=== PATIENT | male | born 1935 | race Caucasian/White ===

== ENCOUNTER 2017-10-09 03:40 | Emergency (ER) | payer OTHER ==
[2017-10-09 08:35] VITALS: BP 140/90
== END 2017-10-09 08:35 | disposition home or self-care (01) ==
LOC: ED 03:40
DX: K59.00 Constipation, unspecified (principal); I10 Essential (primary) hypertension; E11.9 Type 2 diabetes mellitus without complications; N40.0 Benign prostatic hyperplasia without lower urinary tract symptoms; I25.2 Old myocardial infarction; Z95.1 Presence of aortocoronary bypass graft; Z98.890 Other specified postprocedural states; Z86.73 Personal history of transient ischemic attack (TIA), and cerebral infarction without residual deficits

== ENCOUNTER 2017-10-20 08:36 | Emergency (ER) | payer OTHER ==
[~2017-10-20] VITALS: Ht 170.2 cm; Wt 65.8 kg
[2017-10-20 09:21] VITALS: Ht 170.2 cm; Wt 65.8 kg
[2017-10-20 10:24] VITALS: BP 126/77
== END 2017-10-20 10:24 | disposition home or self-care (01) ==
LOC: ED 08:36
DX: K59.00 Constipation, unspecified (principal)

== ENCOUNTER 2018-11-16 00:51 | Emergency (ER) | payer OTHER ==
[~2018-11-16] VITALS: Ht 180.3 cm; Wt 81.6 kg
[2018-11-16 01:08] VITALS: Ht 180.3 cm; Wt 81.6 kg
[2018-11-16 01:57] LABS: PLATELET COUNT 248 x10^3mcL (130-400)
[2018-11-16 01:58] LABS: BASOPHIL % 0 % (0-2); RED CELL DISTRIBUTION WIDTH 15.3 % (11.5-14.5)
[2018-11-16 02:10] LABS: CALCIUM 9.6 mg/dL (8.5-10.1); CARBON DIOXIDE 29.8 mmol/L (21-32); CHLORIDE SERUM 98 mmol/L (98-107); GLUCOSE SERUM 149 mg/dL (74-106); POTASSIUM SERUM 3.3 mmol/L (3.5-5.1); SODIUM SERUM 136 mmol/L (136-145)
[2018-11-16 02:14] LABS: ALBUMIN 3.4 g/dL (3.4-5.0); ALKALINE PHOSPHATASE 56 U/L (46-116); ALT/SGPT 18 U/L (16-63); AST/SGOT 14 U/L (15-37); BILIRUBIN TOTAL 0.53 mg/dL (0.20-1.00); TOTAL PROTEIN, SERUM 8.2 g/dL (6.4-8.2)
[2018-11-16 05:03] VITALS: BP 135/93
[2018-11-17] MEDS ORDERED: PROSCAR5 MG PO (13:17)
[2018-11-17] MEDS ORDERED: XARELTO15 M1 PO (13:19)
[2018-11-17] MEDS ORDERED: CELEBREX200 MG PO (13:21)
[2018-11-17] MEDS ORDERED: REMERON30 MG PO (13:21)
[2018-11-17] MEDS ORDERED: GOOD SENSE OMEP20 MG PO (13:22)
[2018-11-17] MEDS ORDERED: XIGDUO IJ (13:22)
[2018-11-17] MEDS ORDERED: FLOMAX0.4 MG PO (13:24)
[2018-11-17] MEDS ORDERED: COREG12.5 MG PO (13:24)
[2018-11-17] MEDS ORDERED: CYMBALTA60 M1 PO (13:25)
[2018-11-17] MEDS ORDERED: TRESIBA FL100 UNIT/1 IJ (13:28)
== END 2018-11-16 05:03 | disposition home or self-care (01) ==
LOC: ED 00:51
PROVIDERS: Emergency Medicine
DX: D72.829 Elevated white blood cell count, unspecified (principal); I10 Essential (primary) hypertension; E11.9 Type 2 diabetes mellitus without complications; L98.9 Disorder of the skin and subcutaneous tissue, unspecified; Z86.73 Personal history of transient ischemic attack (TIA), and cerebral infarction without residual deficits
CPT/HCPCS: 36415; 87804; Q0092

== ENCOUNTER 2018-11-16 23:31 | Inpatient (IN) | payer OTHER ==
[~2018-11-16] VITALS: Ht 167.6 cm; Wt 72.6 kg
[2018-11-16 23:45] VITALS: Ht 167.6 cm; Wt 72.6 kg
[2018-11-17 00:16] LABS: BASOPHIL % 0.1 % (0-2); PLATELET COUNT 247 x10^3mcL (130-400)
[2018-11-17 00:27] LABS: RED CELL DISTRIBUTION WIDTH 15.3 % (11.5-14.5)
[2018-11-17 00:36] LABS: CALCIUM 10.6 mg/dL (8.5-10.1); CHLORIDE SERUM 99 mmol/L (98-107); CREATININE SERUM 1.1 mg/dL (0.7-1.3); GLUCOSE SERUM 162 mg/dL (74-106); POTASSIUM SERUM 3.5 mmol/L (3.5-5.1); SODIUM SERUM 138 mmol/L (136-145)
[2018-11-17 00:43] LABS: ALBUMIN 3.4 g/dL (3.4-5.0); ALKALINE PHOSPHATASE 54 U/L (46-116); ALT/SGPT 20 U/L (16-63); AST/SGOT 18 U/L (15-37); BILIRUBIN TOTAL 0.3 mg/dL (0.20-1.00); TOTAL PROTEIN, SERUM 8.1 g/dL (6.4-8.2)
[2018-11-17 02:27] LABS: microscopic required? NO
[2018-11-17 02:33] LABS: urine erythrocyte NEGATIVE (NEGATIVE)
[2018-11-17 02:42] LABS: AMPHETAMINE QUAL UR NONE DETECTED (See below)
[2018-11-17 03:40] LABS: FREE T4 1.05 ng/dL (0.76-1.46)
[2018-11-17 04:08] LABS: PHOSPHOROUS 3.3 mg/dL (2.5-4.9)
[2018-11-17 04:15] LABS: CHOLESTEROL/HDL RATIO 3.5
[2018-11-17 05:20] VITALS: BP 133/61
[2018-11-17 06:53] LABS: BASOPHIL % 0.2 % (0-2); PLATELET COUNT 225 x10^3mcL (130-400)
[2018-11-17 07:13] LABS: RED CELL DISTRIBUTION WIDTH 15.2 % (11.5-14.5)
[2018-11-17 07:21] LABS: CALCIUM 10.5 mg/dL (8.5-10.1); CARBON DIOXIDE 31.1 mmol/L (21-32); CHLORIDE SERUM 102 mmol/L (98-107); CREATININE SERUM 1.2 mg/dL (0.7-1.3); GLUCOSE SERUM 130 mg/dL (74-106); MAGNESIUM 1.9 mg/dL (1.8-2.4); PHOSPHOROUS 3.9 mg/dL (2.5-4.9); POTASSIUM SERUM 3.2 mmol/L (3.5-5.1); SODIUM SERUM 140 mmol/L (136-145)
[2018-11-17 08:30] VITALS: BP 144/64
[2018-11-17 13:15] VITALS: BP 118/59
[2018-11-17] MEDS ORDERED: PROSCAR5 MG PO (13:17)
[2018-11-17] MEDS ORDERED: XARELTO15 M1 PO (13:19)
[2018-11-17] MEDS ORDERED: REMERON30 MG PO (13:21)
[2018-11-17] MEDS ORDERED: CELEBREX200 MG PO (13:21)
[2018-11-17] MEDS ORDERED: GOOD SENSE OMEP20 MG PO (13:22)
[2018-11-17] MEDS ORDERED: XIGDUO IJ (13:22)
[2018-11-17] MEDS ORDERED: FLOMAX0.4 MG PO (13:24)
[2018-11-17] MEDS ORDERED: COREG12.5 MG PO (13:24)
[2018-11-17] MEDS ORDERED: CYMBALTA60 M1 PO (13:25)
[2018-11-17] MEDS ORDERED: TRESIBA FL100 UNIT/1 IJ (13:28)
[2018-11-17 18:36] VITALS: BP 132/84
[2018-11-17 22:59] VITALS: BP 144/67
[2018-11-18 05:33] VITALS: BP 149/69
[2018-11-18 08:58] VITALS: BP 168/74
[2018-11-18 09:13] LABS: CALCIUM 9.4 mg/dL (8.5-10.1); CARBON DIOXIDE 30.4 mmol/L (21-32); CHLORIDE SERUM 107 mmol/L (98-107); CREATININE SERUM 1.1 mg/dL (0.7-1.3); GLUCOSE SERUM 150 mg/dL (74-106); POTASSIUM SERUM 4.2 mmol/L (3.5-5.1); SODIUM SERUM 144 mmol/L (136-145)
[2018-11-18 09:50] LABS: BASOPHIL % 0.3 % (0-2); PLATELET COUNT 220 x10^3mcL (130-400); RED CELL DISTRIBUTION WIDTH 15.4 % (11.5-14.5)
[2018-11-18 17:47] VITALS: BP 180/87
[2018-11-18 20:55] VITALS: BP 126/81
[2018-11-18 21:01] VITALS: BP 126/81
[2018-11-19 05:10] VITALS: BP 143/68
[2018-11-19 06:29] LABS: BASOPHIL % 0.2 % (0-2); PLATELET COUNT 206 x10^3mcL (130-400)
[2018-11-19 06:34] LABS: RED CELL DISTRIBUTION WIDTH 15.5 % (11.5-14.5)
[2018-11-19 06:35] LABS: CALCIUM 8.7 mg/dL (8.5-10.1); CARBON DIOXIDE 29.6 mmol/L (21-32); CHLORIDE SERUM 106 mmol/L (98-107); GLUCOSE SERUM 138 mg/dL (74-106); POTASSIUM SERUM 3.9 mmol/L (3.5-5.1); SODIUM SERUM 143 mmol/L (136-145)
[2018-11-19 08:04] VITALS: BP 158/63
[2018-11-19 13:38] VITALS: BP 147/83
[2018-11-19 17:18] VITALS: BP 183/84
[2018-11-19 18:04] VITALS: BP 148/62
[2018-11-20 06:00] VITALS: BP 111/57
[2018-11-20 06:26] LABS: BASOPHIL % 0.4 % (0-2); PLATELET COUNT 199 x10^3mcL (130-400)
[2018-11-20 06:27] LABS: RED CELL DISTRIBUTION WIDTH 15.1 % (11.5-14.5)
[2018-11-20 06:37] LABS: CALCIUM 8.4 mg/dL (8.5-10.1); CARBON DIOXIDE 27.6 mmol/L (21-32); CHLORIDE SERUM 106 mmol/L (98-107); GLUCOSE SERUM 128 mg/dL (74-106); POTASSIUM SERUM 3.6 mmol/L (3.5-5.1); SODIUM SERUM 143 mmol/L (136-145)
[2018-11-20 09:23] VITALS: BP 176/85
[2018-11-20 13:55] VITALS: BP 138/69
[2018-11-20 18:38] VITALS: BP 146/67
[2018-11-20 21:53] VITALS: BP 178/80
[2018-11-20 22:41] VITALS: BP 161/76
[2018-11-21 05:42] VITALS: BP 129/61
[2018-11-21 10:06] VITALS: BP 136/72
[2018-11-21 17:18] VITALS: BP 152/74
[2018-11-21 20:01] VITALS: BP 153/69
[2018-11-22 06:49] LABS: BASOPHIL % 0.5 % (0-2); PLATELET COUNT 243 x10^3mcL (130-400)
[2018-11-22 06:57] LABS: RED CELL DISTRIBUTION WIDTH 14.9 % (11.5-14.5)
[2018-11-22 07:13] LABS: CALCIUM 8.9 mg/dL (8.5-10.1); CARBON DIOXIDE 28.1 mmol/L (21-32); CHLORIDE SERUM 109 mmol/L (98-107); GLUCOSE SERUM 110 mg/dL (74-106); POTASSIUM SERUM 4.2 mmol/L (3.5-5.1); SODIUM SERUM 145 mmol/L (136-145)
[2018-11-22 10:01] VITALS: BP 145/66
[2018-11-22 13:16] VITALS: BP 170/83
[2018-11-22 15:30] VITALS: BP 152/70
[2018-11-22 17:41] VITALS: BP 119/71
[2018-11-22 20:10] VITALS: BP 117/71
[2018-11-23 05:53] VITALS: BP 177/83
[2018-11-23 06:59] VITALS: BP 193/92
[2018-11-23 07:25] LABS: BASOPHIL % 0.4 % (0-2); PLATELET COUNT 219 x10^3mcL (130-400)
[2018-11-23 07:33] LABS: CALCIUM 8.7 mg/dL (8.5-10.1); CARBON DIOXIDE 26.9 mmol/L (21-32); CHLORIDE SERUM 107 mmol/L (98-107); GLUCOSE SERUM 140 mg/dL (74-106); POTASSIUM SERUM 3.7 mmol/L (3.5-5.1); SODIUM SERUM 143 mmol/L (136-145)
[2018-11-23 07:37] LABS: RED CELL DISTRIBUTION WIDTH 15.7 % (11.5-14.5)
[2018-11-23] MEDS ORDERED: FLUCONAZOLE100 MG PO (08:47)
[2018-11-23 09:27] VITALS: BP 142/74
[2018-11-23 09:54] VITALS: BP 142/74
== END 2018-11-23 13:10 | DRG 56 ==
LOC: ED 23:31 → DU 11-17 03:43
PROVIDERS: Emergency Medicine; Internal Medicine; ADMIT Family Medicine
DX: G30.9 Alzheimer's disease, unspecified (principal); G92 Toxic encephalopathy; F05 Delirium due to known physiological condition; D68.69 Other thrombophilia; E11.65 Type 2 diabetes mellitus with hyperglycemia; F02.80 Dementia in other diseases classified elsewhere, unspecified severity, without behavioral disturbance, psychotic disturbance, mood disturbance, and anxiety; K59.00 Constipation, unspecified; I10 Essential (primary) hypertension; E83.52 Hypercalcemia; N40.0 Benign prostatic hyperplasia without lower urinary tract symptoms; E78.5 Hyperlipidemia, unspecified; I25.10 Atherosclerotic heart disease of native coronary artery without angina pectoris; I25.2 Old myocardial infarction; Z95.0 Presence of cardiac pacemaker; Z79.4 Long term (current) use of insulin; Z68.21 Body mass index [BMI] 21.0-21.9, adult; Z95.1 Presence of aortocoronary bypass graft; Z86.73 Personal history of transient ischemic attack (TIA), and cerebral infarction without residual deficits
CPT/HCPCS: 36415; 82962; 84439; 87804; 92526-GN; 92610; 97110-GP; 97116-GP; 97530-GP; G0480; J2060; J3480; J7030; Q0092

== ENCOUNTER 2019-03-28 23:01 | Inpatient (IN) | payer OTHER, MEDICAID ==
[~2019-03-28] VITALS: Ht 172.7 cm; Wt 68.0 kg
[~2019-03-28 23:01] MED LIST: CELEBREX200 MG PO; COREG12.5 MG PO; CYMBALTA60 M1 PO; FLOMAX0.4 MG PO; FLUCONAZOLE100 MG PO; GOOD SENSE OMEP20 MG PO; PROSCAR5 MG PO; REMERON30 MG PO; TRESIBA FL100 UNIT/1 IJ; XARELTO15 M1 PO; XIGDUO IJ
[2019-03-28 23:06] VITALS: Ht 172.7 cm; Wt 68.0 kg
--- NOTE | 2019-03-28 23:15 | NUR ---
DR MUÑOZ AT BEDSIDE FOR MSE
--- NOTE | 2019-03-28 23:52 | NUR ---
MEDICAITONS GIVEN PER ORDER. PT GIVEN WARM BLANKET AND LAB AT BEDSIDE
[2019-03-28 23:57] LABS: PLATELET COUNT 219 x10^3mcL (130-400)
[2019-03-29 00:02] LABS: BASOPHIL % 0 % (0-2)
[2019-03-29 00:15] LABS: CALCIUM 9.4 mg/dL (8.5-10.1); CARBON DIOXIDE 25.6 mmol/L (21-32); CHLORIDE SERUM 107 mmol/L (98-107); CREATININE SERUM 1.2 mg/dL (0.7-1.3); GLUCOSE SERUM 112 mg/dL (74-106); POTASSIUM SERUM 5.1 mmol/L (3.5-5.1); SODIUM SERUM 144 mmol/L (136-145)
[2019-03-29 00:20] LABS: ALBUMIN 3.1 g/dL (3.4-5.0); ALKALINE PHOSPHATASE 47 U/L (46-116); ALT/SGPT 15 U/L (16-63); AST/SGOT 29 U/L (15-37); BILIRUBIN TOTAL 0.42 mg/dL (0.20-1.00); TOTAL PROTEIN, SERUM 7.3 g/dL (6.4-8.2)
--- NOTE | 2019-03-29 01:13 | NUR ---
SPOKE WITH DR MUÑOZ ABOUT UNABTAINABLE URINE SAMPLE. NO STRAIGHT CATH NEEDED . SPOKE WITH ABOUT MEDICATION LIST. SHE DID NOT CURRENTLY HAVE ON SELF AND WOULD BRING A COPY IN THE AM. PT IS LYING ON BACK NO S/S OF DISTRESS. PT GIVEN WARM BLANKET FOR COMFORT
--- NOTE | 2019-03-29 02:44 | NUR ---
REPORT GIVEN TO CARLOS TO ASSUME CARE OF PT
--- NOTE | 2019-03-29 03:00 | NUR ---
RECIEVED PT VIA GUERNEY FROM E/D, ACCOMPANIED BY RN AND TRANSPORTER, PT IS ALERT AND ORIENTED X2, CALM AND COOPERATIVE WITH CARE, PT IS CONFUSED AND IS ORIENTED TO PERSON AND ONLY AT THIS TIME. ON TELE #5 AND AFIB. MARIANNA RADIAL PULSES PRESENT AND MARIANNA PEDAL PULSES PRESENT, PEDAL PULSES ARE WEAK, LEFT SIDED WEAKNESS IS NOTED DUE TO HX OF CVA AND STROKE., BREATHING IS EQUAL AND UNLABORED, ON ROOM AIR, PT HAS LEFT HAND CONTRACTURES. SKIN ASSESSMENT: MULTIPLE SCABS NOTED ON BLE AND DISCOLORATION, SCAB NOTED ON THE LEFT HAND, SCOTT, SACCRAL COCCYX INTACT, TURN Q2HR FOR SKIN MANAGEMENT, PT HAS NO C/O PAIN AT THIS TIME. BUT DID COMPLAIN OF BACK PAIN AND WAS GIVEN TORADOL IN THE ED. ORIENTED PT TO ROOM, BED CONTROLS, CALL LIGHT SYSTEM, SIDE RAILS UPX2, BED IN LOWEST POSITION.
--- NOTE | 2019-03-29 03:05 | NUR ---
DR GAINES MADE AWARE OF AFIB, NO FURTHER ORDERS AT THIS TIME.
[2019-03-29 03:39] VITALS: BP 163/78
[2019-03-29 04:07] LABS: CHOLESTEROL/HDL RATIO 3.6; PHOSPHOROUS 3.5 mg/dL (2.5-4.9)
--- NOTE | 2019-03-29 05:03 | NUR ---
PT HAS RESTED IN SHORT INTERVALS THROUGHOUT THE SHIFT. PT HAS BEEN CALM AND COOPERATIVE WITH CARE. NO ACUTE DISTRESS NOTED. NO COMPLAINT OF PAIN AT THIS TIME. SAFETY AND COMFORT MEASURES MAINTAINED, BED IN LOWEST POSITION, CALL LIGHT WITHIN REACH, SITTER AT THE BEDSIDE. PT HAS BEEN ALERT AND ORIENTED X2, CONFUSED AT TIMES. PT IS FALL RISK AND FALL PRECATIONS IN PLACE.
[2019-03-29 06:12] VITALS: BP 122/61
--- NOTE | 2019-03-29 07:28 | NUR ---
RECEVIED HAND OFF REPORT, FOUND PATIENT RESTING WITH EYS CLOSED APARENTLY ASLEEP ON ROOM AIR, TELE #5 AND SITTING PRESENT IN ROOM. IV TO LEFT FOREARM WITH NS INFUSING. VISUALIZED SCABS AND DISCOLORATION TO BLE REPORTED BY NOC NURSE. CALL LIGHT WITHIN REACH OF PATIENT. WILL CONTINUE TO MONITOR
[2019-03-29 07:31] LABS: CALCIUM 8.8 mg/dL (8.5-10.1); CARBON DIOXIDE 25.2 mmol/L (21-32); CHLORIDE SERUM 111 mmol/L (98-107); CREATININE SERUM 1.2 mg/dL (0.7-1.3); GLUCOSE SERUM 88 mg/dL (74-106); POTASSIUM SERUM 3.7 mmol/L (3.5-5.1); SODIUM SERUM 147 mmol/L (136-145)
[2019-03-29 07:35] LABS: BASOPHIL % 0.5 % (0-2); PLATELET COUNT 171 x10^3mcL (130-400); RED CELL DISTRIBUTION WIDTH 16.6 % (11.5-14.5)
--- NOTE | 2019-03-29 09:37 | NUR ---
MEDICATION GIVEN TO PATIENT PER EMAR. XRAY CAME TO TAKE LUMBAR XRAY. PATIENT AWAKE AND NOT COMPLANING OF PAIN AT THIS TIME. MAINTANACE FLUIDS CHANGED FROM NS TO D5W
[2019-03-29 10:19] VITALS: BP 127/52
--- NOTE | 2019-03-29 10:40 | NUR ---
PT TO HOLD EVALUATION UNTIL RESULTS FROM LUMBAR XRAY. WILL CALL LIBORIO TO GIVE REPORT OF RESULTS
--- NOTE | 2019-03-29 11:40 | NUR ---
BS 120. NO COVERAGE NEEDED, RESULTS FOR SPINE XRAY SHOWED NO FRACTURES SO LIBORIO FROM PT CAME TO EVALUATE PATIENT.
--- NOTE | 2019-03-29 12:38 | NUR ---
OBSERVED PATIENT LAYING SEMIFOWLERS IN BED, EYES CLOSED APPARENTLY ASLEEP. BREATHING IS EVEN AND UNLABORED. SITTER IS PRESENT. PATIENT LUNCH TRAY WAS PRESENT. CALL LIGHT WITHIN REACH, WILL CONTINUE TO MONITOR
--- NOTE | 2019-03-29 15:09 | NUR ---
PATIENT'S GEOFFREY HERE AT BEDSIDE, PATIENT RESTING COMFORTABLE. UPDATE WITH POC AND WANT TO SPEAK WITH DOCTOR, DR. KINNEY WAS INFORM. GETTING PACEMAKER INFO FROM , [facility], MODEL #[id number] INPLANT IN 01/23/2015.
[2019-03-29 16:44] VITALS: BP 128/66
--- NOTE | 2019-03-29 17:02 | NUR ---
BLOOD GLUCOSE WAS 149, NO NEED FOR COVERAGE PER SLIDING SCALE. PATIENT REPOSITIONED BY VENU SITTER. FAMILY NO LONGER AT BEDSIDE
--- NOTE | 2019-03-29 18:43 | NUR ---
ADMINISTERED XARELTO TO PATIENT. PATIENT IN GOOD SPIRITS AND RESTING WELL. NO COMPLAINTS. CALL LIGHT WITHIN REACH AND SITTER IN ROOM
[2019-03-29 19:45] VITALS: BP 137/61
--- NOTE | 2019-03-29 19:45 | NUR ---
RECEIVED PT FROM AM NURSE, PT ASLEEP, SITTER AT BEDSIDE. AAOX2 CONFUSED ABOUT TIME BUT ABLE TO FOLOW COMMANDS. TELE #5 PACED BP 137/61 HR 76, DENIES CP/PRESSURE AT THIS TIME. PALPABLE PULSES TO BUE AND BLE, NO EDEMA NOTED. LUNG SOUNDS CTA ON RA O2 99%. ABD SOFT AND NONDISTENDED, BOWEL SOUNDS ACTIVE X4 QUAD. INCONTINENT TO URINE. GENERALIZED WEAKNESS, BEDFAST. SCABS AND ABRASION TO BLE AND LUE ICU STAFF NURSE. IV TO LFA INFUSING WELL. BED AT LOWEST POSITION, BED ALARM ON, SITTER AT BED SIDE, WILL CONTINUE TO MONITOR.
[2019-03-29 21:05] VITALS: BP 129/59
--- NOTE | 2019-03-30 05:05 | NUR ---
PT SLEPT AT INTERVALS THROUGHOUT NIGHT, BREATHING EVEN AND UNLABORED, NO SIGNS OF RESP DISTRESS NOTED. PT CONFUSED AND TRIES TO GET UP AT TIMES, WILL GO BACK TO BED AFTER REORIENTATING HIM, STAFF AT BEDSIDE. BED AT LOWEST POSITION, BED ALARM ON, CALL LIGHT WITHING REACH. ALL NEEDS ASSESSED AND ATTENDED. WILL ENDORSE CARE TO AM NURSE.
--- NOTE | 2019-03-30 05:29 | NUR ---
DR. GAINES MADE AWARE OF BP THIS AM @ 172/83 MMHG.WILL ORDER CLONIDINE X1 AND WILL CARRY OUT.
[2019-03-30 05:51] VITALS: BP 172/83
--- NOTE | 2019-03-30 06:37 | NUR ---
BP 119/52 MAP 67, HR 63 AFTER APRESOLINE ADMINISTRATION, DENIES PAIN AT THIS TIME WILL ENDORSE TO AM NURSE.
[2019-03-30 06:39] VITALS: BP 119/52
[2019-03-30 06:40] LABS: CALCIUM 8.6 mg/dL (8.5-10.1); CARBON DIOXIDE 27.7 mmol/L (21-32); CHLORIDE SERUM 112 mmol/L (98-107); CREATININE SERUM 1.2 mg/dL (0.7-1.3); GLUCOSE SERUM 134 mg/dL (74-106); MAGNESIUM 2.1 mg/dL (1.8-2.4); PHOSPHOROUS 3.6 mg/dL (2.5-4.9); POTASSIUM SERUM 3.9 mmol/L (3.5-5.1); SODIUM SERUM 147 mmol/L (136-145)
[2019-03-30 06:47] LABS: BASOPHIL % 0.3 % (0-2); PLATELET COUNT 199 x10^3mcL (130-400)
[2019-03-30 07:14] LABS: RED CELL DISTRIBUTION WIDTH 17.1 % (11.5-14.5)
--- NOTE | 2019-03-30 07:45 | NUR ---
RECEIVED HAND OFF REPORT FROM OFF GOING NURSE, FOUND PATIENT LAYING SUPINE IN BED, EYES CLOSED APPARENTLY ASLEEP, ON RA, LAST UNLABORED. EYES OPEN TO VOICE, ORIENTED TO SELF ONLY, NORMAL FOR PATIENT. PATIENT I NO APPARENT DISTRESS AT THIS TIME. CQLL LIGHT WITHIN REACH, SITTER IN ROOM
--- NOTE | 2019-03-30 09:25 | NUR ---
PATEINT RESTING IN BED, ROUSABLE TO A/O X1 SELF NORMAL FOR PATIENT. PATIENT ABLE TO FOLLOW COMMANDS, ADMINISTERED PO MED PER MAR WITHOUT INCIDENT. SITTER PRESENT IN ROOM, CALL LIGHT WITHIN REACH
--- NOTE | 2019-03-30 09:35 | NUR ---
DR MAE NOTIFED THAT UA WAS CANCELLED BY LAB AND NO RESULTS ON RECORD
[2019-03-30 10:12] VITALS: BP 98/41
--- NOTE | 2019-03-30 12:30 | NUR ---
AT BEDSIDE, CALLED CASE MANAGEMENT TO COME SPEAK TO ABOUT PLACEMENT. CM INFORMED THAT THEY WILL LOOK FOR PLACEMENT AND PLAN FOR A MONDAY PLACEMENT. INFORMED OF NEED OF PHYSICAL THERAPY AND STRENGTH EXERSIZES IN ORDER TO GO BACK TO HOME AFTER SNF
--- NOTE | 2019-03-30 15:40 | NUR ---
PATIENT VISUALIZED RESTING COMFORTABLY IN BED, WITH EYES CLOSED APPARENTLY ASLEEP. BREATHING UNLABORED AND REGULAR. CALL CHRISTOPHERT WITHIN REACH, JUWAN PAULINO IN ROOM
--- NOTE | 2019-03-30 16:30 | NUR ---
PATIENT SLEEPING BUT ROUSABLE TO VERBAL STIMULI. BS RESULT 129. NO COVERAGE NEEDED. PATIENT DENIES PAIN OR OTHER COMPLAINTS. CALL LIGHT WITHIN REACH
[2019-03-30 16:59] VITALS: BP 135/64
--- NOTE | 2019-03-30 17:20 | NUR ---
ADMINISTERED MEDICATION PER MAR. PATIENT SITTING UP, EYES OPEN TO VERBAL STIMULI. A/O X1 SELF. FOLLOWING COMMANDS. DENIES PAIN AT THIS TIME. CALL LIGHT WITHIN REACH, SITTER IN ROOM
[2019-03-30 19:43] VITALS: BP 92/53
--- NOTE | 2019-03-30 19:43 | NUR ---
RECEIVED REPORT FROM AM NURSE. PT IN BED ASLEEP. AAOX2 CONFUSED ABOUT TIME, ABLE TO FOLLOW COMMANDS. TELE #5 AFIB WITH ELEVATED T-WAVES, HAS PACEMAKER. DENIES CP/PRESSURE AT THIS TIME. PALPABLE PULSES TO BUE AND BLE, NO EDEMA NOTED. LUNG SOUNDS ARE DIMINISHED THROUGHOUT. BREATHING EVEN AND UNLABORED ON RA, WITH NO SIGNS OF RESP DISTRESS NOTED. ABD SOFT AND ROND, ACTIVE BOWEL SOUNDS X4 QUAD. INCONTINENT TO URINE, USES URINAL AT TIMES. GENERALIZED WEAKNESS, BEDFAST. SCABS AND DISCOLORATION TO BLE AND BUE NOTED SCOTT. IV TO LFA INFUSING WELL. BED AT LOWEST POSITION, BED ALARM ON, CALL LIGHT WITHING REACH. STATED FEELING COLD, WARM BLANKET PROVIDED, STATED FEELING SO MUCH BETTER. WILL CONTINUE TO MONITOR.
--- NOTE | 2019-03-31 05:07 | NUR ---
PT SLEPT WELL THROUGHOUT NIGHT, BREATHING EVEN AND UNLABORED ON RA, NO SIGNS OF ACUTE DISTRESS NOTED. ALL NEEDS ASSESSED AND ATTENDED, BED AT LOWEST POSITION, BED ALARM ON , CALL LIGHT WITHING REACH, WILL ENDORSE CARE TO AM NURSE.
[2019-03-31 05:28] VITALS: BP 144/66
[2019-03-31 06:28] LABS: CALCIUM 8.4 mg/dL (8.5-10.1); CARBON DIOXIDE 27.2 mmol/L (21-32); CHLORIDE SERUM 115 mmol/L (98-107); CREATININE SERUM 1.2 mg/dL (0.7-1.3); GLUCOSE SERUM 120 mg/dL (74-106); MAGNESIUM 1.8 mg/dL (1.8-2.4); PHOSPHOROUS 2.8 mg/dL (2.5-4.9); POTASSIUM SERUM 4.1 mmol/L (3.5-5.1); SODIUM SERUM 149 mmol/L (136-145)
[2019-03-31 06:52] LABS: BASOPHIL % 0.4 % (0-2); PLATELET COUNT 167 x10^3mcL (130-400)
[2019-03-31 08:35] LABS: RED CELL DISTRIBUTION WIDTH 17.6 % (11.5-14.5)
--- NOTE | 2019-03-31 08:57 | NUR ---
ADMINISTERED MEDICATION PER DEC. PATIENT MEAL TRAY IN ROOM, WITH RESIDENTIAL PROGRAM DIRECTOR PAT, PATIENT WAS SAT UP. VS TAKEN. BLOOD PRESSURE 187/89. REPORTED VALUE TO GENERAL MEDICAL PRACTITIONER DESIRE. GENERAL MEDICAL PRACTITIONER STATED TO JUST MONITOR AND RE ASSESS BP AT SCHEDULED INTERVAL. CARVEDILOL ADMINSITERED WITH AM MEDICATION. PATIENT HAD CALL LIGHT WITHIN REACH
[2019-03-31 09:17] VITALS: BP 187/89
--- NOTE | 2019-03-31 09:38 | NUR ---
CHANGED MAINTANACE FLUIDS PER ORDER. PATIENT RESTING AT THIS TIME. ROUSABLE TO VOICE. FINISHED BREAKFAST TRAY. NOT COMPLAINING OF PAIN AT THIS TIME. CALL LIGHT WITHIN REACH, WILL CONTINUE TO MOITOR
--- NOTE | 2019-03-31 11:12 | NUR ---
PATIENT FAMILY AT BEDSIDE, HAD QUESTION ABOUT PLAN OF CARE AND DISCHARGE/PLACEMENT. DAUGHTER: JAYDA TURNER . INFORMED FAMILY ABOUT PLAN OF CARE AND RECOMMENDED THAT FAMILY BE PRESENT ON MONDAY WHEN CERTIFIED HOME HEALTH AIDE WILL ASSESS WITH RESULTS OF FINDING PLACEMENT.
[2019-03-31 11:32] VITALS: BP 165/69
--- NOTE | 2019-03-31 11:33 | NUR ---
BG 156, COVERAGE OF 3UNITS GIVEN, COSIGNED BY JEMIMA ECHEVERRIA. BUSINESS ANALYST INTERN DESIRE DEEMS PATIENT IS STABLE FOR TRASPORT. [facility] IN [place] CALLED STATION INFORMING BED AVALIABLITY FOR PATEINT. PATIENT TO SIGN TRANSFER ACKNOWEGEMENT
--- NOTE | 2019-03-31 11:42 | NUR ---
RECEIVED A CALL FROM [facility] AND SPOKE TO GLENNA AND SHE WAS CONFIRMING IF PT IS BEING DISCHARGE TODAY TO SNF. CALLED TO MINAL(N.P.) AND MADE HER AWARE OF ABOVE. NEW ORDER RECEIVED PT IS STABLE FOR DISCHARGE TO SNF TO CONTINUE P.T., KRYSTIN AND JEMIMA RN ASSIGNED TO THIS PT MADE AWARE OF ABOVE AND RN WILL CALL AND NOTIFY OF DISCHARGE TO SNF. PT IS GOING TO RM:34, ACCEPTING -, TO CALL REPORT , [facility] ON WILL CALL AND [facility] MANAGER TIME IS AT 1330.
--- NOTE | 2019-03-31 11:45 | NUR ---
MAGDALENO ACCEPTED AT [facility] IN [place]. CALLED TO COME IN AND SIGN TRANSFER ACKNOWLEDGEMENT FOR PATIENT. PATIENT UNABLE TO SIGN FOR SELF. STATED SHE WILL COME IN NO MORE THAN 1 HOUR
[2019-03-31 11:47] VITALS: BP 156/69
--- NOTE | 2019-03-31 12:41 | NUR ---
CALLED VIOLET REPORT TO [facility] IN [place]. GAVE REPORT TO YOLANDA ECHEVERRIA. ACEPTING PHYSCIAN IS DR VICENTE. PATIENT WILL BE GOPING TO ROOM 34. DISCHARGE PACKET IS PREPARED. AWAITING PATIENT TO SIGN PAPERWORK. TRANSPORT IS SCHEDULED FOR 1330. ANSWERED ALL QUESTION FROM RN.
--- NOTE | 2019-03-31 13:32 | NUR ---
EXPLAINED DISCHARGE PROCEDURES TO PATIENT AND . , DECISION MAKER FOR PATIENT, SIGNED PAPERWORK. MADE AWARE OF FOLLOW UP APPOINTMENT SET WITH PRIMARY DOCTOR. ANSWERED ALL OF 'S QUESTIONS. ASSITED PATIENT TO SIT UP IN BED TO EAT LUNCH TRAY. GAVE COPY OF DISCHARGE INSTRUCTIONS AND EDUCATION PAKETS TO . WAITING FOR S TRANSPORT, [facility], TO ARRIVE
--- NOTE | 2019-03-31 14:13 | NUR ---
[facility] ARRIVED TO TAKE PATEINT TO [facility] IN [place]. GAVE REPORT TO CREW, UNIT 317. REMOVED PATIENT IV. CATH IN TACT. SITE WNL. NO BLEEDING, REDNESS. PAT VENU REMOVED TELE MONITOR #5 AND TOOK TELE TO MONITOR. JOHNN TAKEN OFF UNIT TO TRANSPORT. ENDORSED CARE TO TRANSPORT
--- NOTE | 2019-04-01 15:14 | NUR ---
PHYSICAL THERAPY DAILY NOTES CO-SIGN All documentation done by the Oven Laborer for 04/01/19 has been reviewed. I agree with the documentation. Reviewed/Co-Signed by: Luzmaria Parrish PT Documentation Done by:AMAURY MARROQUIN PTA FOR 03/30/19
== END 2019-03-31 14:14 | DRG 542 ==
LOC: ED 23:01 → DU 03-29 01:09
PROVIDERS: Emergency Medicine; ADMIT Internal Medicine
DX: M48.56XA Collapsed vertebra, not elsewhere classified, lumbar region, initial encounter for fracture (principal); N17.0 Acute kidney failure with tubular necrosis; I69.354 Hemiplegia and hemiparesis following cerebral infarction affecting left non-dominant side; E44.0 Moderate protein-calorie malnutrition; E87.0 Hyperosmolality and hypernatremia; E11.65 Type 2 diabetes mellitus with hyperglycemia; I10 Essential (primary) hypertension; D64.9 Anemia, unspecified; N40.0 Benign prostatic hyperplasia without lower urinary tract symptoms; H54.62 Unqualified visual loss, left eye, normal vision right eye; I25.2 Old myocardial infarction; Z68.22 Body mass index [BMI] 22.0-22.9, adult; Z95.0 Presence of cardiac pacemaker; Z95.1 Presence of aortocoronary bypass graft; Z79.01 Long term (current) use of anticoagulants; Z79.4 Long term (current) use of insulin
CPT/HCPCS: 82962; 83880; 97110-GP; 97530-GP; G0378; J1885; J7030; J7042; J7060

== ENCOUNTER 2019-06-29 00:53 | Emergency (ER) | payer OTHER, MEDICAID ==
[~2019-06-29] VITALS: Ht 170.2 cm; Wt 79.4 kg
[2019-06-29 01:04] VITALS: Ht 170.2 cm; Wt 79.4 kg
[2019-06-29 03:09] LABS: BASOPHIL % 0.3 % (0-2); PLATELET COUNT 237 x10^3mcL (130-400); RED CELL DISTRIBUTION WIDTH 18.1 % (11.5-14.5)
[2019-06-29 03:20] LABS: CALCIUM 8.3 mg/dL (8.5-10.1); CARBON DIOXIDE 30.4 mmol/L (21-32); CHLORIDE SERUM 108 mmol/L (98-107); CREATININE SERUM 1.2 mg/dL (0.7-1.3); GLUCOSE SERUM 126 mg/dL (74-106); POTASSIUM SERUM 4.4 mmol/L (3.5-5.1); SODIUM SERUM 145 mmol/L (136-145)
[2019-06-29 03:24] LABS: ALKALINE PHOSPHATASE 54 U/L (46-116); ALT/SGPT 15 U/L (16-63); AST/SGOT 10 U/L (15-37); BILIRUBIN TOTAL 0.3 mg/dL (0.20-1.00); TOTAL PROTEIN, SERUM 6.7 g/dL (6.4-8.2)
[2019-06-29 04:24] LABS: microscopic required? NO
[2019-06-29 04:36] LABS: UA SPECIFIC GRAVITY 1.015 (1.005-1.035); urine erythrocyte NEGATIVE (NEGATIVE)
[2019-06-29 07:55] VITALS: BP 126/78
== END 2019-06-29 07:55 | disposition home or self-care (01) ==
LOC: ED 00:53
PROVIDERS: Emergency Medicine
DX: S30.0XXA Contusion of lower back and pelvis, initial encounter (principal); I10 Essential (primary) hypertension; E11.9 Type 2 diabetes mellitus without complications; R93.0 Abnormal findings on diagnostic imaging of skull and head, not elsewhere classified; Z86.73 Personal history of transient ischemic attack (TIA), and cerebral infarction without residual deficits; Z95.1 Presence of aortocoronary bypass graft; Z98.890 Other specified postprocedural states; W06.XXXA Fall from bed, initial encounter; Y93.89 Activity, other specified; Y92.89 Other specified places as the place of occurrence of the external cause; Y99.8 Other external cause status
CPT/HCPCS: 36415

== ENCOUNTER 2019-10-24 17:36 | Emergency (ER) | payer OTHER ==
[~2019-10-24] VITALS: Ht 175.3 cm; Wt 83.9 kg
[2019-10-24 17:41] VITALS: Ht 175.3 cm; Wt 83.9 kg
[2019-10-24 18:34] LABS: BASOPHIL % 0.3 % (0-2); PLATELET COUNT 237 x10^3mcL (130-400); RED CELL DISTRIBUTION WIDTH 20.1 % (11.5-14.5)
[2019-10-24 18:39] LABS: CALCIUM 9.2 mg/dL (8.5-10.1); CARBON DIOXIDE 30.5 mmol/L (21-32); CHLORIDE SERUM 103 mmol/L (98-107); CREATININE SERUM 1.2 mg/dL (0.7-1.3); GLUCOSE SERUM 132 mg/dL (74-106); POTASSIUM SERUM 4.3 mmol/L (3.5-5.1); SODIUM SERUM 141 mmol/L (136-145)
[2019-10-24 18:44] LABS: ALBUMIN 3.6 g/dL (3.4-5.0); ALKALINE PHOSPHATASE 63 U/L (46-116); ALT/SGPT 19 U/L (16-63); AST/SGOT 12 U/L (15-37); BILIRUBIN TOTAL 0.32 mg/dL (0.20-1.00)
[2019-10-24 22:00] VITALS: BP 125/79
== END 2019-10-24 22:00 | disposition home or self-care (01) ==
LOC: ED 17:36
PROVIDERS: Emergency Medicine
DX: R45.1 Restlessness and agitation (principal); I10 Essential (primary) hypertension; E11.9 Type 2 diabetes mellitus without complications; Z86.73 Personal history of transient ischemic attack (TIA), and cerebral infarction without residual deficits; Z95.0 Presence of cardiac pacemaker
CPT/HCPCS: 36415